=== PATIENT | female | born 1975 | race Two or more races ===

== ENCOUNTER 2024-10-21 08:06 | Inpatient (IN) | payer OTHER ==
[2024-10-18 11:43] VITALS: BP 114/76
[~2024-10-21] VITALS: Ht 152.4 cm; Wt 63.5 kg
[2024-10-21] MEDS ORDERED: CEFAZOLIN SODIUM 1,000 MG VIAL ONE (12:49)
[2024-10-21] MEDS ORDERED: METRONIDAZOLE/SODIUM CHLORIDE 500 MG/100 ML PIGGYBACK IV ONE (12:49)
[2024-10-21] MEDS ORDERED: POVIDONE-IODINE 118 ML BOTT TOP ONE (14:56)
[2024-10-21] MEDS ORDERED: SURGIFLO APPLICATOR 1 EACH APPL TOP ONE (16:52)
[2024-10-21] MEDS ORDERED: HEMOSTATIC MATRIX 1 KIT KIT TOP ONE (16:52)
[2024-10-21] MEDS ORDERED: KETOROLAC TROMETHAMINE 30 MG VIAL ONE (17:29)
[2024-10-21] MEDS ORDERED: KETOROLAC TROMETHAMINE 30 MG VIAL IV ONE (17:45)
[2024-10-21] MEDS ORDERED: RINGERS SOLUTION,LACTATED 1,000 ML IV SCH (17:45)
[2024-10-21] MEDS ORDERED: MORPHINE SULFATE 4 MG/ML CARTRIDGE IV PRN (17:45)
[2024-10-21] MEDS ORDERED: ACETAMINOPHEN 500 MG GEL..CAP PO SCH (18:00)
[2024-10-21] MEDS ORDERED: MORPHINE SULFATE 4 MG/ML VIAL IV ONE ×2 (18:25→19:20)
[2024-10-21 19:26] LABS: HEMATOCRIT 36.9 % (36.0-45.00); HEMOGLOBIN 12.4 g/dL (12.0-15.00); MEAN CELL VOLUME 86.4 fL (80.00-100.00); MEAN CORPUSCULAR HGB CONC 33.6 g/dl (32.0-36.0); PLATELET COUNT 232 K/uL (150-450); RED BLOOD COUNT 4.27 M/uL (4.00-6.00); RED CELL DISTRIBUTION WIDTH 14.3 % (11.5-14.5)
[2024-10-21 19:42] LABS: ALBUMIN 3.9 gm/dL (3.4-5.0); CALCIUM 8.8 mg/dL (8.5-10.1); CREATININE SERUM 0.8 mg/dL (0.55-1.02); GFR 76.88; PHOSPHOROUS 3.1 mg/dL (2.5-4.9); POTASSIUM 4.46 mEq/L (3.5-5.1)
[2024-10-21 20:10] VITALS: BP 114/76
[2024-10-21] MEDS ORDERED: FAMOTIDINE/PF 20 MG/2 ML VIAL IV PUSH SCH (21:00)
[2024-10-21] MEDS ORDERED: SIMETHICONE 125 MG CAPSULE PO SCH (21:00)
[2024-10-21] MEDS ORDERED: DOCUSATE SODIUM 100MG CAP PO SCH ×2 (21:00)
[2024-10-21] MEDS ORDERED: GABAPENTIN 300 MG CAPSULE PO SCH (21:00)
[2024-10-22 00:06] VITALS: BP 98/57; O2SAT 98
[2024-10-22] MEDS ORDERED: KETOROLAC TROMETHAMINE 30 MG VIAL IV SCH (01:00)
[2024-10-22] MEDS ORDERED: CEFAZOLIN SODIUM 1,000 MG VIAL IV SCH (01:00)
[2024-10-22] MEDS ORDERED: METOCLOPRAMIDE HCL 5 MG/ML VIAL IV SCH (01:00)
[2024-10-22 02:58] LABS: HEMATOCRIT 33.4 % (36.0-45.00); HEMOGLOBIN 11.4 g/dL (12.0-15.00); MEAN CELL VOLUME 85.2 fL (80.00-100.00); PLATELET COUNT 219 K/uL (150-450); RED BLOOD COUNT 3.92 M/uL (4.00-6.00); RED CELL DISTRIBUTION WIDTH 14.6 % (11.5-14.5)
[2024-10-22 03:20] LABS: ALBUMIN 3.4 gm/dL (3.4-5.0); CALCIUM 8.3 mg/dL (8.5-10.1); CREATININE SERUM 0.65 mg/dL (0.55-1.02); GFR 97.7; PHOSPHOROUS 2.8 mg/dL (2.5-4.9); POTASSIUM 4.03 mEq/L (3.5-5.1)
[2024-10-22 05:00] VITALS: BP 111/69
[2024-10-22 09:03] VITALS: BP 100/65
== END 2024-10-22 13:25 | disposition home or self-care (01) | DRG 743 ==
LOC: CIR.AMB 08:06 → EDSTATUS 10:45 → CIR.AMB 10:45 → SURG 10:45 → CIR.AMB 13:15 → OB/GYN 18:05
PROVIDERS: ADMIT Obstetrics & Gynecology; ATTEND Obstetrics & Gynecology
PROC: 0UT74ZZ Resection of Bilateral Fallopian Tubes, Percutaneous Endoscopic Approach (ICD-10-PCS; 2024-10-21)
PROC: 0USG4ZZ Reposition Vagina, Percutaneous Endoscopic Approach (ICD-10-PCS; 2024-10-21)
PROC: 0UT94ZZ Resection of Uterus, Percutaneous Endoscopic Approach (ICD-10-PCS; principal; 2024-10-21 13:15)
DX: D25.2 Subserosal leiomyoma of uterus (principal); N80.03 Adenomyosis of the uterus